=== PATIENT | male | born 1995 | race Caucasian/White ===

== ENCOUNTER 2022-06-11 16:41 | Emergency (ER) | payer MEDICAID, OTHER, SELFPAY ==
[2022-06-11] MEDS ORDERED: Ibuprofen 800 MG TAB ONE (19:19)
[2022-06-11] MEDS ORDERED: Acetaminophen 500 MG TAB ONE (19:19)
== END 2022-06-11 20:51 | disposition home or self-care (01) ==
LOC: ERS 16:41
DX: J10.1 Influenza due to other identified influenza virus with other respiratory manifestations (principal); Z20.822 Contact with and (suspected) exposure to COVID-19; F17.210 Nicotine dependence, cigarettes, uncomplicated
CPT/HCPCS: 87804; 99283; U0003; U0005

== ENCOUNTER 2022-08-26 08:55 | Emergency (ER) | payer MEDICAID, OTHER | END 2022-08-26 11:35 | disposition home or self-care (01) | LOC: ERS 08:55 | DX: J06.9 Acute upper respiratory infection, unspecified (principal); F17.210 Nicotine dependence, cigarettes, uncomplicated | CPT/HCPCS: 71045; 87081; 87430 ==

== ENCOUNTER 2023-04-30 08:59 | Emergency (ER) | payer OTHER, SELFPAY ==
[2023-04-30 09:33] LABS: #Basophils 0.1 thou/uL (0.0-0.2); #Eosinphils 1.3 thou/uL (0.0-0.7); #Monocytes 0.8 thou/uL (0.11-0.59); #Neutrophils 7.4 thou/uL (1.40-6.50); %Basophils 0.5 % (0.0-1.0); %Eosinophils 11.9 % (0.0-10.0); %Monocytes 7.2 % (0.0-10.0); %Neutrophils 67.2 % (42.0-75.0); Hematocrit 39.7 % (42.0-52.0); Hemoglobin 13.6 g/dL (14.0-18.0); Mean Corpuscular HGB CONC 34.3 g/dL (32.0-36.0); Mean Corpuscular Hemoglobin 28.6 pg (27.0-31.0); Mean Corpuscular Volume 83.6 fl (78.0-98.0); Mean Platelet Volume 10.5 fL (7.4-10.4); Platelet Count 242 10x3/uL (130-400); RBC Distribution Width 11.4 % (11.5-14.5); Red Blood Cell (RBC) Count 4.75 mill/uL (4.70-6.10); White Blood Cell (WBC) Count 11.1 10x3/uL (4.8-10.8)
[2023-04-30 09:43] LABS: Prothrombin Time 13.9 sec (12.0-14.7)
[2023-04-30 09:44] LABS: PTT 28.9 sec (22.9-36.1)
[2023-04-30 09:55] LABS: ALT (SGPT) 20 U/L (8-55); AST (SGOT) 22 U/L (5-34); Albumin 4.5 g/dL (3.5-5.0); Alkaline Phosphatase 49 U/L (40-110); Anion Gap 12 mmol/L (10-20); BUN (Urea Nitrogen) 8 mg/dL (8.9-20.6); Bilirubin, Total 0.6 mg/dL (0.2-1.2); Calc. Creatinine Clearance 0 mL/min (70-130); Calcium 8.8 mg/dL (7.8-10.44); Carbon Dioxide 26 mmol/L (22-29); Chloride 106 mmol/L (98-107); Estimated GFR 115; Globulin 1.9 g/dL (2.4-3.5); Glucose 87 mg/dL (70-105); Lipase 6 U/L (8-78); Potassium 4.1 mmol/L (3.5-5.1); Protein, Total 6.4 g/dL (6.0-8.3); Sodium 140 mmol/L (136-145)
[2023-04-30 09:58] LABS: Troponin I Less than 0.010 ng/mL (< 0.028)
[2023-04-30] MEDS ORDERED: Iopamidol-370 76% 500 ML MDV (1 ML CHARGE) ONE (13:10)
== END 2023-04-30 13:30 | disposition home or self-care (01) ==
LOC: ERS 08:59
DX: R04.2 Hemoptysis (principal); F17.210 Nicotine dependence, cigarettes, uncomplicated
CPT/HCPCS: 36415; 71045; 71275; 80053; 83690; 84484; 85025; 85610; 85730; 93005; Q9967